=== PATIENT | male | born 1955 | race Caucasian/White ===

== ENCOUNTER → 2016-12-04 | Outpatient (CLI) | payer BC ==
--- NOTE | 2016-12-04 09:55 | XR ---
EXAMINATION TYPE: XR chest 2V DATE OF EXAM: 12/04/2016 9:49 AM COMPARISON: 10/26/2009 TECHNIQUE: PA and lateral views submitted. HISTORY: Annual physical FINDINGS: The lungs are clear and there is no pneumothorax, pleural effusion, or focal pneumonia. Hypertrophic and degenerative change spine. Shoulders. Biapical pleural. Calcified lymph nodes in the left hilum. IMPRESSION: 1. No acute process.
== END | disposition home or self-care (01) ==
LOC: RADXRMAIN 09:33
PROVIDERS: ATTEND Family Medicine
DX: Z00.00 Encounter for general adult medical examination without abnormal findings (principal)
CPT/HCPCS: 71020

== ENCOUNTER → 2016-12-17 | Outpatient (CLI) | payer BC ==
--- NOTE | 2016-12-17 14:33 | US ---
EXAMINATION TYPE: US carotid duplex BILAT DATE OF EXAM: 12/17/2016 1:54 PM COMPARISON: NONE CLINICAL HISTORY: R07.89 CP. Atypical chest pain, no hx of carotid abnormalities EXAM MEASUREMENTS: RIGHT: Peak Systolic Velocity (PSV) cm/sec ----- Right CCA: 59.0 ----- Right ICA: 85.4 ----- Right ECA: 80.0 ICA/CCA ratio: 1.4 RIGHT: End Diastole cm/sec ----- Right CCA: 17.2 ----- Right ICA: 39.9 ----- Right ECA: 15.4 LEFT: Peak Systolic Velocity (PSV) cm/sec ----- Left CCA: 99.5 ----- Left ICA: 62.4 ----- Left ECA: 66.7 ICA/CCA ratio: 0.6 LEFT: End Diastole cm/sec ----- Left CCA: 23.7 ----- Left ICA: 31.1 ----- Left ECA: 11.1 VERTEBRALS (direction of flow): Right Vertebral: Antegrade Left Vertebral: Antegrade TECHNOLOGIST IMPRESSION: Plaque seen in left bulb. Bilateral wall thickening. No significant steno sis or elevated velocities seen. Grayscale images show mild shadowing plaque at left carotid bulb. Velocity measurements and ratios ar e within normal limits in visualized portion of both internal carotid arteries. IMPRESSION: No hemodynamic significant stenosis is seen in either internal carotid artery .
--- NOTE | 2016-12-19 12:54 | EST ---
DATE OF SERVICE: 12/17/2016 AGE: 61Y SEX: M HT: 69" WT: 180 lbs. Protocol Charli: X Other: Stress Stage: 2 Dur. of Exercise: 7:30 *Heart Rate Blood Pressure *Rest: 69 Rest: 137/86 * *Max. Achieved: 147 Maximum BP: 197/93 85% PMHR: 136 100% PMHR: 160 *METS: 8.5 INDICATIONS: Chest pain. MEDICATIONS: - Baseline rhythm is sinus mechanism, rate of 69, normal axis and intervals, QS in V1 to V2. Baseline blood pressure 137/86 mmHg. Patient exercised on Charli protocol for 7 minutes 30 seconds reaching peak rate of 147 beats per minute, which is equal to 91% maximum predicted heart rate; peak blood pressure 197/93 mmHg. The test was terminated due to fatigue. There was no chest pain. Electrocardiograph monitoring revealed no evidence of diagnostic ischemic ST deviation. CONCLUSION: 1. Average exercise tolerance. 2. Normal electrocardiograph response to exercise with no evidence of exercise-induced ischemia.
--- NOTE | 2016-12-19 15:28 | ECHOF ---
Referral Reason:R07.89 CP, MEASUREMENTS -------- HEIGHT: 175.3 cm WEIGHT: 81.7 kg BP: 137/86 RVIDd: 3.2 cm (< 3.3) IVSd: 1.0 cm (0.6 - 1.1) LVIDd: 4.2 cm (3.9 - 5.3) LVPWd: 1.0 cm (0.6 - 1.1) IVSs: 1.6 cm LVIDs: 2.7 cm LVPWs: 1.5 cm LA Diam: 3.0 cm (2.7 - 3.8) LAESV Index (A-L): 19.50 ml/m Ao Diam: 3.2 cm (2.0 - 3.7) AV Cusp: 2.3 cm (1.5 - 2.6) MV EXCURSION: 12.148 mm (> 18.000) MV EF SLOPE: 48 mm/s (70 - 150) EPSS: 0.8 cm MV E Lasha: 0.37 m/s MV DecT: 355 ms MV A Lasha: 0.53 m/s MV E/A Ratio: 0.70 FINDINGS -------- Sinus rhythm. This was a technically good study. The left ventricular size is normal. Left ventricular wall thickness is normal. Overall left ventricular systolic function is normal with, an EF between 60 - 65 %. The right ventricle is normal in size. Normal LA size by volume 22+/-6 ml/m2. The right atrium is normal in size. Interatrial septal aneurysm. Aortic valve is trileaflet and is mildly thickened. There is trace mitral regurgitation. The tricuspid valve appears structurally normal. The pulmonic valve was not well visualized. The aortic root size is normal. Normal inferior vena cava with normal inspiratory collapse consistent with estimated right atrial pressure of 5 mmHg. There is no pericardial effusion. CONCLUSIONS -------- 1. Sinus rhythm. 2. Aortic valve is trileaflet and is mildly thickened. 3. There is trace mitral regurgitation. 4. The tricuspid valve appears structurally normal. 5. The pulmonic valve was not well visualized. 6. The aortic root size is normal. 7. Normal inferior vena cava with normal inspiratory collapse consistent with estimated right atrial pressure of 5 mmHg. 8. There is no pericardial effusion. 9. This was a technically good study. 10. The left ventricular size is normal. 11. Left ventricular wall thickness is normal. 12. Overall left ventricular systolic function is normal with, an EF between 60 - 65 %. 13. The right ventricle is normal in size. 14. Normal LA size by volume 22+/-6 ml/m2. 15. The right atrium is normal in size. 16. Interatrial septal aneurysm. BRIDGE OPERATOR SLIP: Zofia Richards RDCS
== END ==
LOC: RADNMMAIN 11:11
PROVIDERS: ATTEND Family Medicine
DX: I34.0 Nonrheumatic mitral (valve) insufficiency (principal); I25.3 Aneurysm of heart
CPT/HCPCS: 93017; 93306; 93880

== ENCOUNTER → 2016-12-24 | Outpatient (CLI) | payer BC ==
--- NOTE | 2016-12-26 13:00 | P.ARTDOP ---
Arterial Doppler LOWER EXTREMITY ARTERIAL DOPPLER: DATE OF SERVICE: 12/24/2016 Reason for study: Numbness left leg.. Doppler waveforms: Multiphasic bilaterally throughout. Pulse volume recording: Normal configuration. Pressure gradients: None. Ankle-brachial indices: Greater than 1 bilaterally. Toe pressures: [] on the right, [] on the left Impression: Normal study.
--- NOTE | 2017-01-02 10:38 | P.ARTDOP ---
Arterial Doppler LOWER EXTREMITY ARTERIAL DOPPLER: DATE OF SERVICE: 12/25/2016 Reason for study: Leg numbness and cold feet. Doppler waveforms: Multiphasic bilaterally throughout. Pulse volume recording: Normal configuration. Pressure gradients: None. Ankle-brachial indices: Greater than 1 bilaterally. Toe pressures: [] on the right, [] on the left Impression: Normal study.
== END | disposition home or self-care (01) ==
LOC: RADUSWWP 13:55
PROVIDERS: ATTEND Family Medicine
DX: I73.9 Peripheral vascular disease, unspecified (principal); R07.89 Other chest pain
CPT/HCPCS: 93923

== ENCOUNTER 2018-12-10 07:22 | Day surgery (SDC) | payer BC ==
[2018-12-05 08:39] VITALS: BMI 25.8
[~2018-12-10 07:22] MED LIST: DEXAMETHASONE SOD PHOSPHATE 10 MG/ML 1 ML VIAL IV ONE; HEPARIN SODIUM,PORCINE 5,000 UNIT/ML 1 ML VIAL SQ ONE; LIDOCAINE 1% 20 ML VIAL (10MG/ML) FOR IV START INTRADERMA PRN; MIDAZOLAM (PF) 2 MG/2 ML VIAL IV PRN; ONDANSETRON 4 MG/2 ML VIAL IVP ONE; SCOPOLAMINE 1.5MG/72HR PATCH TRANSDERM ONE; ceFAZolin IN SWFI 2 GM/20 ML SYRINGE IVP ONE
[2018-12-10 08:34] VITALS: RESP 16
[2018-12-10] MEDS: LACTATED RINGERS 1,000 ML IV SCH (08:34)
[2018-12-10] MEDS ORDERED: LIDOCAINE 1% 20 ML VIAL (10MG/ML) FOR IV START INTRADERMA ONE (08:35)
--- NOTE | 2018-12-10 08:48 | P.HPADDEND ---
H&P Addendum H&P Addendum Date: 12/10/18 To clarify the patient's hernia repair with performed laparoscopically using the da [place] robot.
[2018-12-10] MEDS ORDERED: NEOSTIGMINE 1 MG/ML 10 ML VIAL ONE (09:18)
[2018-12-10] MEDS ORDERED: MIDAZOLAM 2 MG/2 ML VIAL ONE (09:18)
[2018-12-10] MEDS ORDERED: ROCURONIUM BROMIDE 10 MG/ML 10 ML VIAL IV ONE (09:18)
[2018-12-10] MEDS ORDERED: PROPOFOL 10 MG/ML 20 ML VIAL IV ONE (09:18)
[2018-12-10] MEDS ORDERED: GLYCOPYRROLATE 0.2 MG/ML 2 ML VIAL ONE (09:18)
[2018-12-10] MEDS ORDERED: fentaNYL (PF) 50 MCG/ML 2 ML AMP ONE (09:18)
[2018-12-10] MEDS ORDERED: LIDOCAINE 1% INJ 10MG/ML (20 ML MDV) ONE (09:18)
[2018-12-10] MEDS ORDERED: BUPIVACAIN-EPI 0.5%-1:200,000 30 ML VIAL SQ ONE (09:39)
[2018-12-10] MEDS ORDERED: TAMSULOSIN 0.4 MG CAP.ER.24H PO STA (11:00)
[2018-12-10] MEDS ORDERED: NALOXONE 0.4 MG/ML 1 ML VIAL IV PRN (11:00)
[2018-12-10] MEDS ORDERED: HYDROcodone/APAP 5-325MG 1 EACH TAB PO PRN (11:00)
--- NOTE | 2018-12-10 11:05 | P.OP ---
Date of Procedure: 12/10/18 Procedure(s) Performed: PREOPERATIVE DIAGNOSIS: Bilateral inguinal hernia POSTOPERATIVE DIAGNOSIS: Same PROCEDURE: Laparoscopic repair lateral direct inguinal hernia with the da [place] robot assistance with mesh SURGEON: Tony EBL: Minimal ANESTHESIA: General COMPLICATIONS: None OPERATIVE PROCEDURE: Patient was placed in the operating table in the supine position. The patient was placed under general anesthesia. The abdomen was prepped and draped in usual sterile fashion. A small curvilinear supraumbilical incision was made. The fascia was retracted anteriorly with Ines forceps. The Veress needle was inserted. The saline drop test was normal. Insufflation took place to 15 mmHg. A 5 mm trocar was placed into the peritoneal cavity. This was later switched to a 12 mm trocar. 2 additional 8 mm trochars were placed in the right upper quadrant and left upper quadrant under visualization. The robotic arms were then brought in and docked into place. The fenestrated bipolar was used in the left arm and the laparoscopic pablo was utilized in the right arm. A 30 12 mm scope was used in the up position. The peritoneal cavity was inspected. The patient had a visible moderate sized direct hernia on the right- hand side. No visible hernia on the left. There was no indirect hernia seen bilaterally. From our preoperative assessment we did proceed with bilateral repair. The right side was first addressed. The peritoneum was incised in a horizontal fashion cephalad to the internal inguinal ring. Following that careful dissection of the preperitoneal space took place. This took place using both electrocautery, sharp dissection but primarily blunt dissection. Visualization of the pubic tubercle and Samuel's ligament took place medially. Full dissection took place laterally as well. The hernia sac was fully dissected. The left side was then addressed. The peritoneum was incised in a similar fashion and a preperitoneal dissection took place. 2 separate defects in the direct space were seen. Both hernias were reduced. Full dissection took place to cover all hernia sites. Once we had adequate space the 15 x 10 progrip mesh was advanced into the preperitoneal space and flattened out appropriately to cover all potential hernia sites. Mesh was used both on the right and left side. Both meshes were able to cover one another in the midline. No sutures were used. The peritoneal defect was then closed bilaterally using a locking 2- 0 VLok suture. The pneumoperitoneum was then evacuated. The fascia at the 12 mm site was closed using the Stanislav Lea technique and an 0 Vicryl stitch. The skin of all 3 sites was closed using a 4-0 Monocryl stitch. Skin glue was then applied. DISPOSITION: Stable to recovery room
[2018-12-10] MEDS: HYDROmorphone 0.5 MG/0.5 ML SYRINGE IVP PRN ×4 (11:10→11:25)
[2018-12-10 11:29] VITALS: TEMP 98.2
[2018-12-10] MEDS ORDERED: MEPERIDINE 50 MG/ML SYRINGE IVP ONE (11:36)
[2018-12-10] MEDS: fentaNYL (PF) 50 MCG/ML 2 ML AMP IVP ONE ×2 (12:04→12:14)
[2018-12-10 13:04] VITALS: BP 157/96; PULSE 81
== END 2018-12-10 14:04 | disposition home or self-care (01) ==
LOC: OR 07:22
PROVIDERS: ATTEND Surgery
DX: K40.20 Bilateral inguinal hernia, without obstruction or gangrene, not specified as recurrent (principal); E03.9 Hypothyroidism, unspecified; Z79.890 Hormone replacement therapy; F17.220 Nicotine dependence, chewing tobacco, uncomplicated
CPT/HCPCS: 49650; S2900